=== PATIENT | male | born 1960 | race Caucasian/White ===

== ENCOUNTER 2022-12-19 16:38 | Emergency (ER) | payer SELFPAY ==
[2022-12-19 16:45] VITALS: BP 142/102; PULSE 84; RESP 16; TEMP 36.9; O2SAT 99
--- NOTE | 2022-12-19 17:31 | ED.GENADUL_ITS ---
Discharge Plan Disposition Patient Disposition: Home Condition: Stable Discharge Details Clinical Impression: Dental infection Primary Care Provider: Unknown,Unknown ED Provider: Saeed Hinojosa Home Meds and New Rx's Prescriptions: New amoxicillin 875 mg tablet 875 mg PO BID Qty: 20 0RF Discharge Instructions Instructions: Toothache (ED) Additional Instructions: Amoxicillin as directed. Warm compresses every 2 hours for 20 minutes. [id number] medication such as Tylenol as directed for discomfort. Please watch for new or worsening symptoms and return to the ER for any concerns. Lastly, using the dental list provided, please contact local dentist on Thursday discuss your ER visit, ongoing symptoms, and establish local outpatient dental care. Medical Decision Making 62-year-old gentleman, current smoker, denies significant past medical history, recently moved to the area and does not have a dentist. Reports approximately 2 weeks ago was chewing something hard, developed some tooth pain and it felt loose at that time, worse over the past 48 hours. He is primarily concerned about infection. No obvious pointing abscess. No evidence of trismus, he is afebrile. We will give first dose of amoxicillin now. We will also provide dental list to help expedite outpatient follow-up. Standard discharge and return precautions were provided. Patient understands, is agreeable to this plan, and has no additional questions or concerns upon discharge. This documentation was generated using [employer] dictation system, please disregard any oddities of phrase or misspellings. HPI General Mode of arrival: ambulatory . Date/Time Provider Initiated Documentation: 12/19/22 16:55 . Limitations to Documentation: no limitations . Information obtained by: patient . History of Present Illness 62 year old M presents to the emergency department with the chief complaint of dental infection, described as mild, with intensity rated at 3. Quality is described as aching, and is localized to the mouth. Patient reports no radiation. Patient started experiencing this week(s) (2) and it has been constant. No exacerbating factors reported . Patient notes no other symptoms.. Patient did receive the following treatments prior to arrival, none Related Data Home Medications Medication Instructions Recorded Confirmed amoxicillin 875 mg tablet 875 mg PO BID #20 tabs 12/19/22 Previous Rx's Medication Instructions Recorded amoxicillin 875 mg tablet 875 mg PO BID #20 tabs 12/19/22 Allergies Allergy/AdvReac Type Severity Reaction Status Date / Time No Known Drug Allergies Allergy Unverified 12/19/22 16:48 General Stated Complaint: DentalOral ZAYNAB: 4 Review of Systems Constitutional Constitutional: Denies fever(s) ENT Ears, Nose, Mouth, and Throat: Denies neck pain and Denies sore throat Cardiovascular Cardiovascular: Denies chest pain Respiratory Respiratory: Denies cough Musculoskeletal Musculoskeletal: Denies neck pain Integumentary/Breasts Skin/Breast: Denies erythema PFSH All Active Problems (Updated 12/19/22 @ 17:36 by CHINMAY Reyna) Dental infection (Acute) Social History Smoking risk assessment performed?: No Do you feel safe at home: Yes Do you feel safe in your relationship?: Yes Exam Const General: cooperative, healthy appearing, comfortable and no acute distress Orientation: alert and awake [facility] Head: normal to inspection, normocephalic and atraumatic Face images: 1. Mild swelling and tenderness. No fluctuance or pointing abscess. Skin is intact Mouth: moist mucous membranes Teeth and gingiva: poor dentition Teeth image: 1. Mild tenderness. Slightly loose. Throat: posterior oropharynx normal Eyes General: appearance normal, both eyes and all related structures Conjunctivae: conjunctivae normal Neck Neck: normal visual inspection, full ROM, no meningeal signs, trachea midline, supple and nontender Resp Effort & Inspection: normal respiratory effort and able to speak in complete sentences Skin General skin exam: no rashes or lesions noted Neuro General: patient alert, patient awake, moves all extremities and no focal motor deficits Cognition: normal cognition Speech: speech normal Gait: normal gait Sensory Exam: no sensory deficits noted Psych Appearance: grossly normal Mental Status: mental status grossly normal Course Vital Signs Vital signs: Vital Signs Temperature 36.9 C 12/19/22 16:45 Pulse 84 12/19/22 16:45 Respiratory Rate 16 12/19/22 16:45 Blood Pressure 142/102 H 12/19/22 16:45 Pulse Oximetry 99 12/19/22 16:45 Temperature 36.9 C 12/19/22 16:45 Temperature Source Temporal Artery Scan 12/19/22 16:45 Pulse 84 12/19/22 16:45 Respiratory Rate 16 12/19/22 16:45 Respiratory Effort Non-Labored 12/19/22 17:00 Blood Pressure 142/102 H 12/19/22 16:45 Blood Pressure Position Sitting 12/19/22 16:45 Pulse Oximetry 99 12/19/22 16:45 Oxygen Delivery Method Room Air 12/19/22 16:45 Oxygen Flow Rate 0 12/19/22 16:45 Pain Level 5 12/19/22 16:45
[2022-12-19] MEDS: Amoxicillin 875 MG TAB PO (17:33)
== END 2022-12-19 17:44 | disposition home or self-care (01) ==
PROVIDERS: Emergency Provider Physician Assistant
DX: K04.7 Periapical abscess without sinus (principal)
CPT/HCPCS: 99283; 99284

== ENCOUNTER 2024-05-01 11:56 | Emergency (ER) | payer MEDICARE, SELFPAY ==
[2024-05-01 12:01] VITALS: BP 141/70; PULSE 68; RESP 14; TEMP 37.4; O2SAT 99
[2024-05-01 12:22] VITALS: BP 170/67; PULSE 66; RESP 16; TEMP 36.7; O2SAT 99
[2024-05-01] MEDS: Amoxicillin 875/Clav. 125 TAB PO (12:34)
--- NOTE | 2024-05-01 12:37 | ED.GENADUL_ITS ---
Discharge Plan Disposition Patient Disposition: Home Discharge Details Clinical Impression: Dental abscess Primary Care Provider: None,None ED Provider: Shruthi Campbell Home Meds and New Rx's Prescriptions: New amoxicillin-pot clavulanate 875-125 mg tablet 1 tab PO BID Qty: 14 0RF Discontinued amoxicillin 875 mg tablet 875 mg PO BID Qty: 20 0RF Discharge Instructions Instructions: Dental Abscess (ED) Additional Instructions: Please follow-up as scheduled with your primary care provider. I recommend that you reach out to a dentist if you are not feeling full improvement in your abscess after a couple of days. Take the amoxicillin/clavulanate for the full course as prescribed. I encourage you to use with probiotic or Activia yogurt to prevent antibiotic associated diarrhea. Rinse frequently with salt water. You may use Tylenol or ibuprofen as needed for discomfort. Return to emergency care if you develop new fevers, difficulty opening your mouth, swelling in your mouth, difficulty swallowing, or if you are very worried and need to be rechecked again immediately HPI General Date/Time Provider Initiated Documentation: 05/01/24 12:02 . HPI Narrative: Mikal is a 64-year-old male who presents to the emergency department today for evaluation of right lower posterior gumline swelling and right ear pain. He reports that symptoms started yesterday. He denies associated fever/chills, headache, vision changes, dizziness, difficulty swallowing, drainage from ear, sore throat, cough. He does have a history of extensive tooth loss, does not have any teeth in that side. No known inciting factors. No recent antibiotic use. He denies any trauma to the ear. Related Data Home Medications Medication Instructions Recorded Confirmed amoxicillin 875 mg-potassium 1 tab PO BID #14 tabs 05/01/24 clavulanate 125 mg tablet Previous Rx's Medication Instructions Recorded amoxicillin 875 mg-potassium 1 tab PO BID #14 tabs 05/01/24 clavulanate 125 mg tablet Allergies Allergy/AdvReac Type Severity Reaction Status Date / Time No Known Drug Allergies Allergy Other (See Unverified 05/01/24 12:06 Comment) General Stated Complaint: EarProblem ZAYNAB: 4 Review of Systems Narrative: see HPI Exam Const General: cooperative, healthy appearing, comfortable, no acute distress and well developed HENMT Head: normal to inspection Ears: hearing grossly normal bilaterally, no periauricular adenopathy and unable to visualize TM bilaterally (cerumen impaction) General nose exam: external nose normal Mouth: lip normal, tongue normal, salivary ducts normal, oropharynx normal, moist mucous membranes and no muffled voice Teeth and gingiva: gingiva abnormal other (1 cm abscess noted along gums of R lower molars) and poor dentition (few remaining teeth) Throat: posterior oropharynx normal Neck Neck: normal visual inspection, full ROM and no lymphadenopathy Resp Effort & Inspection: normal respiratory effort and able to speak in complete sentences Course Vital Signs Vital signs: Vital Signs Temperature 37.4 C 05/01/24 12:01 Pulse 68 05/01/24 12:01 Respiratory Rate 14 05/01/24 12:01 Blood Pressure 141/70 H 05/01/24 12:01 Pulse Oximetry 99 05/01/24 12:01 Temperature 36.7 C 05/01/24 12:22 Temperature Source Temporal Artery Scan 05/01/24 12:22 Pulse 66 05/01/24 12:22 Respiratory Rate 16 05/01/24 12:22 Respiratory Effort Normal 05/01/24 12:22 Blood Pressure 170/67 H 05/01/24 12:22 Blood Pressure Position Sitting 05/01/24 12:01 Pulse Oximetry 99 05/01/24 12:22 Oxygen Delivery Method Room Air 05/01/24 12:22 Oxygen Flow Rate 0 05/01/24 12:01 Pain Level 2 05/01/24 12:22 Procedures Abscess I/D Site: Other (dental) Side (if applicable): Right (R lower gumline along location of missing teeth 30- 32) Local Anesthetic: Other Anesthetic (hurricaine spray) Technique: Incised with #11 Blade Amount of fluid expressed (mL): 3 Irrigation: No Packing used?: None Medical Decision Making Mikal is a 64-year-old male who presents to the emergency department today for evaluation of right lower posterior gumline swelling and right ear pain. He reports that symptoms started yesterday. He denies associated fever/chills, headache, vision changes, dizziness, difficulty swallowing, drainage from ear, sore throat, cough. He does have a history of extensive tooth loss, does not have any teeth in that side. No known inciting factors. No recent antibiotic use. He denies any trauma to the ear. Physical exam remarkable for fluctuant abscess noted to the right lower molars, with teeth 30 through 32 with be located. No trismus. Clear voice. No abnormalities noted to posterior oropharynx, tongue swelling, other jaw pain. Unable to visualize TMs due to bilateral cerumen impaction. No cervical or submandibular lymphadenopathy. Full painless range of motion of neck. History and presentation consistent with uncomplicated dental abscess, no concern at this time for extension into deep space. I&D performed after local topical anesthetic with HurriCaine spray applied. Stab incision was made with #11 blade, a moderate amount of purulent drainage was able to be expressed. Patient tolerated procedure well. Reviewed discharge instructions with patient, including use of Augmentin, wound care, and red flags indicating need for return to emergency care. He is in the process of establishing care with PCP, has an appointment scheduled in May. Recommend follow-up with dental as needed. Quality:SDOH Health Related Social Needs: No Data to Display PFSH All Active Problems (Updated 05/01/24 @ 12:27 by Shruthi Tran) Dental abscess (Acute) Social History Smoking/Tobacco Use Status: Current every day Tobacco Type: cigarettes Smoking risk assessment performed?: Yes Alcohol Intake: current Alcohol Intake frequency: a few times a week Drug use: Daily Substance use type: marijuana Do you feel safe at home: Yes Do you feel safe in your relationship?: Yes
== END 2024-05-01 12:45 | disposition home or self-care (01) ==
PROVIDERS: Emergency Provider Nurse Practitioner Family
DX: H92.01 Otalgia, right ear (principal); K04.7 Periapical abscess without sinus; F17.210 Nicotine dependence, cigarettes, uncomplicated
CPT/HCPCS: 10060; 99283

== ENCOUNTER → 2025-04-20 13:20 | Outpatient (BNVA) | payer MEDICARE, SELFPAY | PROVIDERS: PCP Family Medicine; Referring Provider Family Medicine; Visit Provider Surgery | DX: K46.9 Unspecified abdominal hernia without obstruction or gangrene (principal) | CPT/HCPCS: 99203 ==

== ENCOUNTER 2025-04-27 03:14 | Outpatient (CLI) | payer MEDICARE, SELFPAY ==
[2025-04-27 08:30] LABS: ALT 30 U/L (16-63); AST 26 U/L (15-37); Albumin 3.7 g/dL (3.4-5.0); Alkaline Phosphatase 106 U/L (46-116); Anion Gap 9.7 mmol/L (3-11); BUN 20 mg/dL (7-18); Bilirubin, Total 0.4 mg/dL (0.2-1.0); CO2 26.3 mmol/L (21.0-32.0); CREATININE 0.7 mg/dL (0.70-1.30); Calcium 8.9 mg/dL (8.5-10.1); Calculated LDL 117 mg/dL (<100); Chloride 105 mmol/L (98-107); Cholesterol 194 mg/dL (<200); Estimated GFR 100.99 (mL/min/1.73m2); Glucose 113 mg/dL (74-106); HDL Cholesterol 68 mg/dL (>or=40); Potassium 4.1 mmol/L (3.5-5.1); Sodium 141 mmol/L (136-145); Total Protein 7.3 g/dL (6.4-8.2); Triglyceride 46 mg/dL (<150)
[2025-04-27 19:41] LABS: Hepatitis C Ab w Rflx HCV PCR Negative (Negative)
== END 2025-04-27 03:15 | disposition home or self-care (01) ==
LOC: LBO 03:14
PROVIDERS: PCP Family Medicine; Referring Provider Family Medicine; Visit Provider Family Medicine
DX: Z13.6 Encounter for screening for cardiovascular disorders (principal); Z11.3 Encounter for screening for infections with a predominantly sexual mode of transmission
CPT/HCPCS: 36415; 80053; 80061; 86803

== ENCOUNTER → 2025-06-29 10:05 | Outpatient (BNVA) | payer MEDICARE, SELFPAY | PROVIDERS: PCP Family Medicine; Referring Provider Family Medicine; Visit Provider Physical Therapy Assistant | DX: Z12.11 Encounter for screening for malignant neoplasm of colon (principal) | CPT/HCPCS: S0285 ==

== ENCOUNTER 2025-07-14 09:45 | Day surgery (SDC) | payer MEDICARE, SELFPAY ==
[2025-07-14 10:23] VITALS: BP 146/79; PULSE 59; RESP 16; TEMP 36.5; O2SAT 97
[2025-07-14] MEDS: Lactated Ringers 1,000 ML 80 ML IV (10:41)
--- NOTE | 2025-07-14 12:51 | W.ANESPRE ---
General Info Date of Service Date Performed: 07/14/25 Height: 5 ft 7 in Weight: 70 kg Body Mass Index (BMI): 24.1 Surgical Procedure: Operation Date: 07/14/25 11:50 Proposed Procedure Side Surgeon p Natalie Olivera MD Meds Allergies and Home Medications Allergies Allergy/AdvReac Type Severity Reaction Status Date / Time No Known Drug Allergies Allergy Other (See Unverified 07/14/25 10:15 Comment) Home Medication ?Medication ?Instructions ?Recorded bisacodyl 5 mg tablet,delayed 5 mg PO ONCE #4 tabs 06/29/25 release (Dulcolax (bisacodyl)) polyethylene glycol 3350 17 17 g PO ONCE #238 grams 06/29/25 gram/dose oral powder Current Visit Medications: Current Medications Generic Name Dose Route Start Last Admin Trade Name Freq PRN Reason Stop Dose Admin Ringer's Solution 1,000 mls @ 80 mls/hr 07/14/25 06:00 07/14/25 10:41 IV 07/14/25 23:59 80 mls/hr INFUSION GAYATRI Administration IV Miscellaneous Supplies 1 each 07/14/25 06:00 Iv Access IV 07/14/25 23:59 DIRECTED GAYATRI Sodium Chloride 0 ml 07/14/25 06:00 Normal Saline Flush 10 Ml Syr IV 07/14/25 23:59 PRN PRN Sodium Chloride 0 ml 07/14/25 06:00 Normal Saline 10 Ml Vial IJ 07/14/25 23:59 DIRECTED PRN Sterile Water 0 ml 07/14/25 06:00 Water,Injection,Sterile 10 Ml Vial IJ 07/14/25 23:59 DIRECTED PRN PFSH Active Problems Active Problems: Problem Status Onset Code Positive colorectal cancer screening using DNA-based stool test Acute R19.5 Inguinal hernia Acute K40.90 Tobacco use Acute Z72.0 Surgical History Surgical History Hx of hernia repair Tobacco Smoking/Tobacco Use Status: Current every day Tobacco Type: cigarettes Alcohol Alcohol Intake: current Alcohol intake frequency: a few times a month Substance Use Substance use: Occasionally Substance use type: marijuana Vital Signs and Lab Results Vital Signs Most Recent Vital Signs in EMR: Most Recent Vital Signs Temp Pulse Resp BP Pulse Ox 36.5 C 59 L 16 146/79 H 97 07/14/25 10:23 07/14/25 10:23 07/14/25 10:23 07/14/25 10:23 07/14/25 10:23 Anesthesia Assessment and Plan Anesthesia History Personal History: No History of Anesthesia Complications Family History: No Family History of Anesthesia Complications Exercise Tolerance Exercise Tolerance: Metabolic Equivalents>4 Pertinent Negatives Pertinent Negatives: No Symptoms of GERD Cardiac & Pulmonary Exam Cardiac Exam: Normal S1/S2 Heart Sounds Pulmonary Exam: Clear Bilateral Breath Sounds Implantable Cardiac Device Does patient have a Pacemaker or an ICD?: No Airway Exam Known Difficult Airway: No Mallampati Class: 1 Mouth Opening: Normal (> 3cm) Thyromental Distance: Greater than 3 cm Neck Range of Motion: Full ROM Neck Circumference: Normal Teeth Condition: Generalized Poor Dentition and Removable Dentures/Plates Upper ASA Classification ASA Score: ASA 2 Emergency Case?: No NPO Status NPO Status: NPO Clears >2 hours, Solids >8 hours Anesthesia Plan Resuscitation Status: Full Code Anesthesia Technique: General Anesthesia Airway Planned: Natural Airway Monitors Used: Standard Monitors
[2025-07-14 12:52] VITALS: BMI 24.1
--- NOTE | 2025-07-14 14:08 | BOWEL_PTH ---
PATIENT: Mikal Small LOC: [facility] U#:[id number] AGE/SX: 65/M ROOM: RE07/14/[address]: Nigel Olivera : 1960 BED: DIS: 07/14/2025 SPEC #: [id number] RECD: 07/14/25 15:43 STATUS: CIARRA REQ #: [id number] MACEY: 07/14/25 14:[address]: Nigel Olivera DEPT: Surgical Specimen RECD BY: Sumi Burris ENTERED: 07/14/25 15:44 SP TYPE: Bowel OTHR DR: Antonio Vincent DO Tissues: 1 - BIOPSY BOWEL 2 - BIOPSY BOWEL 3 - BIOPSY BOWEL 4 - BIOPSY BOWEL 5 - BIOPSY BOWEL Procedures: GROSS AND MICRO LEVEL 4 Comments: [id number]
[2025-07-14 14:36] VITALS: BP 101/70; PULSE 59; RESP 17; TEMP 36.6; O2SAT 95
--- NOTE | 2025-07-14 14:53 | W.ANESPOSTOP ---
Postoperative Evaluation Date, Time and Location Date Performed: 07/14/25 Time Performed: 14:53 Patient Location: Day Surgery Unit Vital Signs Most Recent Imported Vital Signs: Most Recent Vital Signs Temp Pulse Resp BP Pulse Ox 36.6 C 59 L 17 101/70 95 07/14/25 14:36 07/14/25 14:36 07/14/25 14:36 07/14/25 14:36 07/14/25 14:36 Pain Score Most Recent Pain Score: Most Recent Pain Score Pain Level 0 07/14/25 14:36 Assessment Mental Status: Awake (Alert & Oriented to Patient Baseline) Airway and Respiratory Function: Patent airway with normal (patient baseline) respiratory exam Cardiovascular Function: Hemodynamically Stable Hydration Status: Adequately Hydrated Nausea & Vomiting: No Nausea or Vomiting Pain: Pt. Denies Any Pain Peripheral Nerve Block: Patient did not receive a nerve block
--- NOTE | 2025-07-14 14:55 | W.COLOREPORT ---
Date of service: 07/14/25 Time of Service: 14:55 Colonoscopy Report Procedure Description: PROCEDURES PERFORMED: 1. Colonoscopy with Hot snare polypectomy x5 2. Ablation/fulguration/destruction of colon polyps x 10+ 3. Endoscopic clip application PREOPERATIVE DIAGNOSIS: Positive Cologuard POSTOPERATIVE DIAGNOSIS: Colorectal polyposis, mild sigmoid diverticulosis SURGEON: Chidi Olivera MD INDICATION FOR PROCEDURE: The patient is a 65-year-old man who is never had a colonoscopy. He had a Cologuard test that was positive. He has no symptoms of concern. No family history of colon cancer. FINDINGS: Normal terminal ileum. Polyps: There is colonic polyposis. I would estimate the disease burden of polyps to be 50-100. The majority of polyps are in the distal colon from the sigmoid through into the rectum. The majority of the polyps are small and flat with a round?appearance and look hyperplastic. Between 2-5 mm in size for almost all of them. I thus went after the ugly duckling's and resected 5, separate adenomatous?appearing polyps ranging in size from 7-12 mm in size. These polyps were all removed with a hot snare. They were taken from the ascending colon, transverse colon, sigmoid colon x 2 and rectum. In the same region of each of these polyps, I ablated all nearby polyps with the tip of the hot snare(10+). In the distal sigmoid colon was the largest of all the polyps measuring 10-12 mm in size and it was sessile with an advanced?appearance to it. The mucosal defect was unacceptably large and I approximated the mucosal edges with an Endo Clip. There was mild sigmoid diverticular disease. There was no obvious hemorrhoid disease. SURVEILLANCE interval/FOLLOW-UP: Pending path results. I will follow-up with the patient in the office to go over these path results and discuss management strategy going forward. I am suspicious that the majority of the polyps are actually hyperplastic based off their appearance. SPECIMENS: Yes EBL: Minimal COMPLICATIONS: None QUALITY of prep: Excellent Procedure in detail: The patient gave written consent and was in agreement with the indications, the potential risks as well as the benefits of the procedure. They were taken to the endoscopy suite and laid in the left lateral decubitus position. A timeout was performed and anesthesia was administered which was tolerated well. I started the procedure. Digital rectal and visual examination was performed and grossly within normal limits. A well-lubricated flexible colonoscope was then introduced and passed without any notable difficulty all the way to the cecum identified by the ileocecal valve and the appendiceal orifice. The terminal ileum was briefly, superficially intubated and looked normal. The scope was then slowly withdrawn with the above-noted findings. The patient tolerated the procedure well and was taken to the PACU in hemodynamically stable condition.
--- NOTE | 2025-07-14 14:55 | W.PM.DSUDISC ---
Date of service: 07/14/25 Discharge Plan Disposition Patient Disposition: Home Discharge Details Attending Provider: Nigel Olivera Primary Care Provider: Antonio Vincent Home Meds and New Rx's Prescriptions: No Action bisacodyl [Dulcolax (bisacodyl)] 5 mg tablet,delayed release (DR/EC) 5 mg PO ONCE Qty: 4 0RF Rx Instructions: Take per colonoscopy instructions provided by ordering providers office polyethylene glycol 3350 17 gram/dose powder 17 g PO ONCE Qty: 238 0RF Rx Instructions: Take per colonoscopy instructions provided by ordering providers office Discharge Instructions Additional Instructions: FINDINGS: As we discussed, you have numerous polyps in your colon and this is a condition called polyposis. You probably have more than 100 still inside of you. We will follow-up on the pathology results of the polyps that we removed today before deciding the next steps and course of action. We will schedule follow-up visit for you within the next 2?4 weeks to make management strategy plans. Stand Alone Forms: Anesthesia Discharge Inst., Colonoscopy Post Instructions, Lyndon Thompson (DSU) Activity:: Activity as Tolerated Diet:: As Tolerated Discharge Orders Discharge Orders: Discharge Order (Routine); Ordered 07/14/25 Ordered By: Nigel Olivera
[2025-07-14 15:00] VITALS: BP 138/73; PULSE 52; RESP 17; TEMP 36.4; O2SAT 97
== END 2025-07-14 15:09 | disposition home or self-care (01) ==
PROVIDERS: PCP Family Medicine; Visit Provider Student in an Organized Health Care Education/Training Program
PROC: 0DJD8ZZ Inspection of Lower Intestinal Tract, Via Natural or Artificial Opening Endoscopic (ICD-10-PCS; CPT 45378; principal; 2025-07-14 11:45)
DX: Z12.11 Encounter for screening for malignant neoplasm of colon (principal); K40.90 Unilateral inguinal hernia, without obstruction or gangrene, not specified as recurrent; K57.30 Diverticulosis of large intestine without perforation or abscess without bleeding; D12.8 Benign neoplasm of rectum; D12.2 Benign neoplasm of ascending colon; D12.4 Benign neoplasm of descending colon; D12.5 Benign neoplasm of sigmoid colon
CPT/HCPCS: 45385; 88305; J2704

== ENCOUNTER → 2025-08-11 08:52 | Outpatient (BNVA) | payer MEDICARE, SELFPAY | PROVIDERS: PCP Family Medicine; Referring Provider Family Medicine; Visit Provider Surgery | DX: K63.5 Polyp of colon (principal); D12.6 Benign neoplasm of colon, unspecified | CPT/HCPCS: 99214 ==